=== PATIENT | female | born 1995 | race Caucasian/White ===

== ENCOUNTER 2016-12-31 19:06 | Inpatient (IN) | payer OTHER ==
[2016-12-31] MEDS ORDERED: Dinoprostone* 10 MG VAG.SUPP VAGINAL ONE (20:00)
[2016-12-31] MEDS ORDERED: Zolpidem TAB* 5 MG PO ONE (20:36)
[2016-12-31] MEDS ORDERED: fentaNYL* 50 MCG/ML 2 ML VIAL (100 MCG VIAL) IV PRN (23:55)
[2017-01-01] MEDS ORDERED: fentaNYL* 50 MCG/ML 2 ML VIAL (100 MCG VIAL) ONE ×2 (01:10→10:28)
[2017-01-01 01:16] LABS: Hematocrit 32 % (35-47); Hemoglobin 10.7 g/dl (12.0-16.0); Mean Corpuscular HGB Conc 33 g/dl (31-36); Mean Corpuscular Hemoglobin 28 pg (27-31); Mean Corpuscular Volume 84 fL (80-97); Mean Platelet Volume 8 um3 (7.4-10.4); Red Blood Count 3.85 10^6/ul (4.0-5.4); Red Cell Distribution Width 14 % (10.5-15); White Blood Count 11.7 10^3/ul (3.5-10.8)
[2017-01-01] MEDS ORDERED: Oxytocin in LR* 20 UNITS/1,000 ML BAG IVPB SCH ×2 (09:00→19:46)
[2017-01-01] MEDS ORDERED: OBEPIDURAL* 250 ML ONE (10:10)
[2017-01-01] MEDS ORDERED: fentaNYL* 50 MCG/ML 2 ML VIAL (100 MCG VIAL) IV SLOW PU ONE (10:30)
[2017-01-01] MEDS ORDERED: Phenylephrine IV* 40 MCG/ML 10 ML SYRINGE IV PUSH PRN (12:45)
[2017-01-01] MEDS ORDERED: Famotidine TAB* 20 MG PO PRN (12:45)
[2017-01-01] MEDS ORDERED: Sodium Citrate/Citric Acid* 15 ML UDC PO PRN (12:45)
[2017-01-01] MEDS ORDERED: EPHEDrine (Pressors)* 50 MG/ML VIAL IV PUSH PRN ×2 (12:45)
[2017-01-01] MEDS ORDERED: OBEPIDURAL* 250 ML EPIDURAL SCH (13:00)
[2017-01-01] MEDS: Sertraline* 50 MG TAB PO SCH (17:40)
[2017-01-01] MEDS ORDERED: Witch Hazel PAD* JAR TOPICAL PRN (19:43)
[2017-01-01] MEDS ORDERED: Ibuprofen TAB* 600 MG PO PRN (19:43)
[2017-01-01] MEDS ORDERED: oxyCODONE/Acetamin 5/325 MG* TAB PO PRN (19:43)
[2017-01-01] MEDS ORDERED: Dibucaine 1% 28.35 GM TUBE PR PRN (19:43)
[2017-01-01] MEDS ORDERED: Acetaminophen TAB* 325 MG PO PRN (19:43)
[2017-01-01] MEDS ORDERED: Glycerin ADULT SUPP PR PRN (19:43)
[2017-01-01] MEDS: Docusate CAP* 100 MG PO SCH (21:00)
[2017-01-02 07:57] LABS: Hematocrit 29 % (35-47); Hemoglobin 9.7 g/dl (12.0-16.0); Mean Corpuscular HGB Conc 34 g/dl (31-36); Mean Corpuscular Hemoglobin 28 pg (27-31); Mean Corpuscular Volume 84 fL (80-97); Mean Platelet Volume 8 um3 (7.4-10.4); Red Blood Count 3.41 10^6/ul (4.0-5.4); Red Cell Distribution Width 13 % (10.5-15); White Blood Count 10.7 10^3/ul (3.5-10.8)
[2017-01-02] MEDS: Sertraline* 50 MG TAB PO SCH (08:55)
[2017-01-02] MEDS: Docusate CAP* 100 MG PO SCH ×3 (08:55→19:57)
[2017-01-02] MEDS: Ferrous Gluconate TAB* 324 MG TAB PO SCH ×2 (08:55→19:58)
[2017-01-03 08:13] VITALS: BP 127/77
[2017-01-03] MEDS: Docusate CAP* 100 MG PO SCH (08:41)
[2017-01-03] MEDS: Ferrous Gluconate TAB* 324 MG TAB PO SCH (08:42)
[2017-01-03] MEDS: Sertraline* 50 MG TAB PO SCH (08:42)
== END 2017-01-03 12:11 | disposition home or self-care (01) | DRG 560 ==
LOC: MCHOBOUT 19:06 → MCHOB 19:13
PROVIDERS: ADMIT Nurse Practitioner; ATTEND Midwife
PROC: 10E0XZZ Delivery of Products of Conception, External Approach (ICD-10-PCS; principal; 2017-01-01)
PROC: 3E033VJ Introduction of Other Hormone into Peripheral Vein, Percutaneous Approach (ICD-10-PCS; 2017-01-01)
DX: O48.0 Post-term pregnancy (principal); D64.9 Anemia, unspecified; O90.81 Anemia of the puerperium; Z37.0 Single live birth; Z3A.41 41 weeks gestation of pregnancy; O99.334 Smoking (tobacco) complicating childbirth; F17.210 Nicotine dependence, cigarettes, uncomplicated
CPT/HCPCS: 36415; 59200; 85025; 85027; 86850; 86900; 86901; A9270-GY; J3010

== ENCOUNTER 2017-04-01 10:42 | Inpatient (IN) | payer OTHER ==
[2017-04-01 11:26] LABS: Urine Bilirubin Negative (Negative); Urine Glucose Negative (Negative); Urine Nitrite Negative (Negative)
[2017-04-01 11:36] LABS: Benzodiazepine Urine Screen None Detected (None Detect)
[2017-04-01 11:37] LABS: Hematocrit 44 % (35-47); Hemoglobin 14.4 g/dl (12.0-16.0); Mean Corpuscular HGB Conc 33 g/dl (31-36); Mean Corpuscular Hemoglobin 27 pg (27-31); Mean Corpuscular Volume 83 fL (80-97); Mean Platelet Volume 7 um3 (7.4-10.4); Red Blood Count 5.29 10^6/ul (4.0-5.4); Red Cell Distribution Width 14 % (10.5-15); White Blood Count 9.8 10^3/ul (3.5-10.8)
[2017-04-01 11:51] LABS: ALT 67 U/L (7-52); AST 29 U/L (13-39); Albumin 4.6 g/dL (3.2-5.2); Alkaline Phosphatase 87 U/L (34-104); Anion Gap 9 mmol/L (2-11); BUN/Creatinine Ratio 16.5 (8-20); Blood Urea Nitrogen 18 mg/dL (6-24); CO2 Carbon Dioxide 23 mmol/L (22-32); Calcium 9.7 mg/dL (8.6-10.3); Chloride 103 mmol/L (101-111); EGFR African American 80.7 (>60); EGFR Non-African American 62.8 (>60); Globulin 3.3 g/dL (2-4); Glucose 89 mg/dL (70-100); Sodium 135 mmol/L (133-145); Total Protein 7.9 g/dL (6.4-8.9)
[2017-04-01 12:39] LABS: Acetaminophen < 15 mcg/mL; Alcohol < 10 mg/dL (<10); Salicylate < 2.50 mg/dL (<30)
[2017-04-01 12:44] LABS: TSH (Thyroid Stimulating Horm) 3.61 mcIU/mL (0.34-5.60)
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
[2017-04-01] MEDS ORDERED: Nicotine Inhaler* 10 MG AMP INH PRN (13:24)
[2017-04-01] MEDS ORDERED: Acetaminophen TAB* 325 MG PO PRN (13:24)
[2017-04-01] MEDS ORDERED: Al Hydrox/Mg Hydrox/Simet LIQ* 30 ML UDC PO PRN (13:24)
[2017-04-01] MEDS ORDERED: Ibuprofen TAB* 600 MG PO PRN (13:25)
[2017-04-01] MEDS ORDERED: Mouth Piece, Nicotine* 1 EACH CARTRIDGE INH ONE (14:00)
[2017-04-01] MEDS: Famotidine TAB* 20 MG PO SCH (20:46)
[2017-04-02] MEDS ORDERED: Sertraline* 50 MG TAB PO SCH (09:00)
[2017-04-02] MEDS: Famotidine TAB* 20 MG PO SCH ×2 (09:08→21:35)
[2017-04-02] MEDS: Vitamin THERAPEUTIC TAB PO SCH (09:09)
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
[2017-04-02] MEDS: Citalopram TAB* 20 MG PO SCH (14:14)
[2017-04-02 14:57] LABS: Free T4 0.72 ng/dL (0.61-1.12); Prolactin 6.1 ng/mL (1.0-25.0)
[2017-04-02 15:21] LABS: Luteinizing Hormone 2.7 mcIU/mL
[2017-04-03] MEDS: Vitamin THERAPEUTIC TAB PO SCH (08:30)
[2017-04-03] MEDS: Citalopram TAB* 20 MG PO SCH (08:31)
[2017-04-03] MEDS: Famotidine TAB* 20 MG PO SCH ×2 (08:31→20:49)
--- NOTE | 2017-04-03 15:42 | PN ---
Subjective - Subjective Service Type: 86039 Hosp care 15 min low complexity Subjective: I had the opportunity to meet with Liberty today who reported good sleep and appetite. She states that her mood is "OK" but did acknowledge that she missed her children. She is hoping to be discharged on Wednesday. Case discussed with Dr. Caal. Objective - Appearance Dysmorphic Features: No Hygiene: Normal Grooming: Well Kept - Behavior Psychomotor Activities: Normal Exhibits Abnormal Movement: No - Attitude and Relatedness Attitude and Relatedness: Cooperative Eye Contact: Good - Speech Quality: Unpressured Latencies: Normal Quantity: Appropriate - Mood Patient's Decription of Mood: "Good" - Affect Observed Affect: Non-labile - Thought Process Patient's Thought Process: Coherent Thought Content: No Passive Wish - Denies, No Suicidal Planning - Denies, No Homicidal Ideation - Denies, No Paranoid Ideation - Sensorium Experiencing Hallucinations: No, Sensorium is Clear - Level of Consciousness Level of Consciousness: Alert Orientation: Yes Intact - Impulse Control Impulse Control: Intact - Insight and Judgement Insight and Judgement: Good - Group Participation Particating in Group Activities: Yes Plan - Plan Treatment Plan: Name: LIBERTY VIA Birthdate: 1995 [id number] Medications: Current Medications Acetaminophen (Tylenol Tab*) 650 mg PO Q4H PRN PRN Reason: for pain; or Temp >101 F Al Hydrox/Mg Hydrox/Simethicone (Maalox Plus*) 30 ml PO Q4H PRN PRN Reason: INDIGESTION Citalopram Hydrobromide (Celexa Tab*) 20 mg PO DAILY [facility] Last Admin: 04/03/17 08:31 Dose: 20 mg Famotidine (Pepcid Tab*) 20 mg PO BID [facility] PRN Reason: Protocol Last Admin: 04/03/17 08:31 Dose: Not Given Ibuprofen (Motrin Tab*) 600 mg PO Q6H PRN PRN Reason: PAIN - MILD Multivitamins (Theragran Tab*) 1 tab PO DAILY [facility] Last Admin: 04/03/17 08:30 Dose: 1 tab Nicotine (Nicotine Inhaler*) 10 mg INH Q2H PRN PRN Reason: CRAVING
[2017-04-04] MEDS: Citalopram TAB* 20 MG PO SCH (08:52)
[2017-04-04] MEDS: Famotidine TAB* 20 MG PO SCH ×2 (08:53→20:14)
[2017-04-04] MEDS: Vitamin THERAPEUTIC TAB PO SCH (08:53)
[2017-04-05] MEDS: Citalopram TAB* 20 MG PO SCH (08:34)
[2017-04-05] MEDS: Famotidine TAB* 20 MG PO SCH ×2 (08:35→21:32)
[2017-04-05] MEDS: Vitamin THERAPEUTIC TAB PO SCH (08:35)
--- NOTE | 2017-04-05 10:30 | PN ---
Subjective - Subjective Service Type: 19995 Hosp care 15 min low complexity Subjective: Liberty is pleasant and smiling for our interview today. She denies any active psychiatric or physical symptoms. She is pleasantly accepting of the need to await arrival of social work staff on Wednesday to plan toward discharge. Objective - Appearance Appearance: Well Developed/Nourished Dysmorphic Features: No Hygiene: Normal Grooming: Well Kept - Behavior Psychomotor Activities: Normal Exhibits Abnormal Movement: No - Attitude and Relatedness Attitude and Relatedness: Well Related Eye Contact: Good - Speech Quality: Unpressured Latencies: Normal Quantity: Appropriate - Mood Patient's Decription of Mood: "Good" - Affect Observed Affect: Good Affect Consistent with: Euthymia - Thought Process Patient's Thought Process: Coherent, Goal Directed Thought Content: No Passive Wish, No Suicidal Planning, No Homicidal Ideation, No Paranoid Ideation - Sensorium Experiencing Hallucinations: No, Sensorium is Clear Type of Hallucinations: Visual: No, Auditory: No, Command: No - Level of Consciousness Level of Consciousness: Alert Orientation: Yes Intact, Yes Orientated to Time, Yes Orientated to Place, Yes Orientated to Person - Impulse Control Impulse Control: Intact - Insight and Judgement Insight and Judgement: Fair - Group Participation Particating in Group Activities: Yes - Medication Management Medication Management Adherence: Yes Assessment - Assessment Merits Inpatient Hospitalization: Consolidate Improvements, For Discharge Planning Inpatient DSM-IV Dx: 1. PTSD. 2. Unspecified depressive disorder. 3. Extensive history of polysubstance abuse, reportedly in sustained remission of over 2-1/2 years. 4. Some OCD symptomatology but not sufficient for the diagnosis. 5. Also rule out social phobia versus avoidance symptomatology of PTSD. Clinical Impression: Day of admission, 5.26.17 Liberty Molina is a 21-year-old mother of a 3-year-old daughter and a 3-month-old son by two separate fathers. She reports a fairly extensive history of traumatic experience in tumultuous relationships as a teenager following upon a rebellious phase with abuse of multiple substances. She has come to our attention for the acute safety concerns of a text message to the boyfriend stating that she was suicidal, and notation in the medical record from the ED evaluation of concern on the part of her mother and her boyfriend for the safety of the children. This latter will require some investigation through gathering collateral from the mother and the boyfriend, which Liberty has agreed to. She also states that she feels that she would benefit from arrangement for ongoing psychotherapy. She does not feel that she needs continued hospitalization here, and would prefer to have arrangements for outpatient followup. Early discharge to this option will depend upon gathering collateral from her mother and her boyfriend to clarify acute safety concerns. If risks are sufficiently low, we would contemplate a discharge in short order. If not she will likely be staying for 3 to 5 days for stabilization in a safe environment. She has agreed to start Celexa toward taking Lexapro after discharge against her depressive and anxious symptoms, and antidepressant may also help with management of her PTSD. She has been advised that it would be important to work on establishing a firm sense of safety before delving into potentially destabilizing details of her history of PTSD. Day 4, 04.05.17 Liberty reports sustained remission of SI, and denies any other concerning psychiatric symptoms. She is eager for discharge home, which will depend upon collateral reports from family members who initially raised safety concerns, her mother and her boyfriend. She is med and group compliant. Plan - Plan Treatment Plan: Name: LIEBRTY VIA Birthdate: 1995 [id number] Continue current treatment plan. Discharge contingent upon collateral confirming no acute safety concerns. Medications: Current Medications Acetaminophen (Tylenol Tab*) 650 mg PO Q4H PRN PRN Reason: for pain; or Temp >101 F Al Hydrox/Mg Hydrox/Simethicone (Maalox Plus*) 30 ml PO Q4H PRN PRN Reason: INDIGESTION Citalopram Hydrobromide (Celexa Tab*) 20 mg PO DAILY [facility] Last Admin: 04/05/17 08:34 Dose: 20 mg Famotidine (Pepcid Tab*) 20 mg PO BID JANE PRN Reason: Protocol Last Admin: 04/05/17 08:35 Dose: Not Given Ibuprofen (Motrin Tab*) 600 mg PO Q6H PRN PRN Reason: PAIN - MILD Multivitamins (Theragran Tab*) 1 tab PO DAILY [facility] Last Admin: 04/05/17 08:35 Dose: Not Given Nicotine (Nicotine Inhaler*) 10 mg INH Q2H PRN PRN Reason: CRAVING - Discharge Plan Discharge Plan: Outpatient Follow Up
[2017-04-06 08:01] VITALS: BP 112/66
[2017-04-06] MEDS: Vitamin THERAPEUTIC TAB PO SCH (09:01)
[2017-04-06] MEDS: Famotidine TAB* 20 MG PO SCH (09:01)
[2017-04-06] MEDS: Citalopram TAB* 20 MG PO SCH (09:01)
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
== END 2017-04-06 16:25 | disposition home or self-care (01) | DRG 755 ==
LOC: ED 10:42 → BSU 16:55
PROVIDERS: ADMIT Psychiatry & Neurology Psychiatry; ATTEND Psychiatry & Neurology Psychiatry
DX: F43.10 Post-traumatic stress disorder, unspecified (principal); F32.9 Major depressive disorder, single episode, unspecified; K21.9 Gastro-esophageal reflux disease without esophagitis; Z81.8 Family history of other mental and behavioral disorders
CPT/HCPCS: 36415; 80053; 80307; 80320; 80329; 81003; 83001; 83002; 84146; 84403; 84439; 84443; 84702; 85025; 99222; 99231; A9270-GY; G0480

== ENCOUNTER 2018-01-09 20:09 | Inpatient (IN) | payer MEDICAID ==
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
[2018-01-10] MEDS ORDERED: Calcium Carbonate CHEW TAB* 500 MG (TUMS) ONE (05:40)
[2018-01-10] MEDS: Calcium Carbonate CHEW TAB* 500 MG (TUMS) PO PRN ×2 (05:41→10:25)
[2018-01-10] MEDS ORDERED: Oxytocin in LR* 20 UNITS/1,000 ML BAG IVPB SCH ×2 (10:00→16:00)
[2018-01-10] MEDS: Sertraline* 50 MG TAB PO SCH (10:25)
[2018-01-10 11:06] LABS: Hematocrit 35 % (35-47); Hemoglobin 11.6 g/dl (12.0-16.0); Mean Corpuscular HGB Conc 33 g/dl (31-36); Mean Corpuscular Hemoglobin 26 pg (27-31); Mean Corpuscular Volume 78 fL (80-97); Mean Platelet Volume 8 um3 (7.4-10.4); Platelet Count 227 10^3/ul (150-450); Red Blood Count 4.47 10^6/ul (4.0-5.4); Red Cell Distribution Width 16 % (10.5-15); White Blood Count 9.4 10^3/ul (3.5-10.8)
[2018-01-10] MEDS ORDERED: fentaNYL* 50 MCG/ML 2 ML VIAL (100 MCG VIAL) IV SLOW PU ONE (12:42)
[2018-01-10] MEDS ORDERED: OBEPIDURAL* 250 ML EPIDURAL ONE (12:43)
[2018-01-10] MEDS ORDERED: fentaNYL* 50 MCG/ML 2 ML VIAL (100 MCG VIAL) ONE (12:43)
[2018-01-10] MEDS ORDERED: Phenylephrine IV* 40 MCG/ML 10 ML SYRINGE IV PUSH PRN ×2 (13:23)
[2018-01-10] MEDS ORDERED: EPHEDrine (Pressors)* 50 MG/ML VIAL IV PUSH PRN ×2 (13:23)
[2018-01-10] MEDS ORDERED: Sodium Citrate/Citric Acid* 15 ML UDC PO PRN (13:23)
[2018-01-10] MEDS ORDERED: Famotidine TAB* 20 MG PO PRN (13:23)
[2018-01-10] MEDS ORDERED: OBEPIDURAL* 250 ML EPIDURAL SCH (14:00)
[2018-01-10] MEDS ORDERED: Glycerin ADULT SUPP PR PRN (15:07)
[2018-01-10] MEDS ORDERED: Acetaminophen TAB* 325 MG PO PRN (15:07)
[2018-01-10] MEDS ORDERED: Ibuprofen TAB* 600 MG PO PRN (15:07)
[2018-01-10] MEDS ORDERED: Witch Hazel PAD* JAR TOPICAL PRN (15:07)
[2018-01-10] MEDS ORDERED: Dibucaine 1% 28.35 GM TUBE PR PRN (15:07)
[2018-01-10] MEDS ORDERED: Lidocaine 1% MPF* 2 ML VIAL ONE (15:09)
[2018-01-10] MEDS: Simethicone TAB* 80 MG TAB.CHEW PO SCH (20:15)
[2018-01-10] MEDS: Docusate CAP* 100 MG PO SCH (20:15)
[2018-01-11 06:22] LABS: ABS Basophils 0 10^3/ul (0-0.2); ABS Eosinophils 0 10^3/ul (0-0.6); ABS Lymphocytes 3.4 10^3/ul (1.0-4.8); ABS Monocytes 0.7 10^3/ul (0-0.8); ABS Neutrophils 6.3 10^3/ul (1.5-7.7); ABS Nucleated RBC 0 10^3/ul; Eosinophil % 0.3 % (0-6); Hematocrit 32 % (35-47); Hemoglobin 10.5 g/dl (12.0-16.0); Lymphocyte % 32.8 % (25-47); Mean Corpuscular HGB Conc 34 g/dl (31-36); Mean Corpuscular Hemoglobin 26 pg (27-31); Mean Corpuscular Volume 79 fL (80-97); Mean Platelet Volume 8 um3 (7.4-10.4); Nucleated Red Blood Cells % 0; Platelet Count 153 10^3/ul (150-450); Red Blood Count 3.99 10^6/ul (4.0-5.4); Red Cell Distribution Width 15 % (10.5-15); White Blood Count 10.4 10^3/ul (3.5-10.8)
[2018-01-11] MEDS: Docusate CAP* 100 MG PO SCH ×3 (08:58→20:41)
[2018-01-11] MEDS: Sertraline* 50 MG TAB PO SCH (09:00)
[2018-01-11] MEDS ORDERED: Ferrous Gluconate TAB* 324 MG TAB PO SCH (09:00)
[2018-01-11] MEDS: Simethicone TAB* 80 MG TAB.CHEW PO SCH (09:00)
[2018-01-12] MEDS: Sertraline* 50 MG TAB PO SCH (09:12)
[2018-01-12] MEDS: Docusate CAP* 100 MG PO SCH (09:13)
[2018-01-12 09:48] VITALS: BP 141/72
== END 2018-01-12 11:56 | disposition home or self-care (01) | DRG 560 ==
LOC: MCHOBOUT 20:09 → MCHOB 20:28
PROVIDERS: ADMIT Midwife; ATTEND Midwife
PROC: 10E0XZZ Delivery of Products of Conception, External Approach (ICD-10-PCS; principal; 2018-01-10)
PROC: 10907ZC Drainage of Amniotic Fluid, Therapeutic from Products of Conception, Via Natural or Artificial Opening (ICD-10-PCS; 2018-01-10)
DX: O99.344 Other mental disorders complicating childbirth (principal); F32.9 Major depressive disorder, single episode, unspecified; O77.0 Labor and delivery complicated by meconium in amniotic fluid; O69.1XX0 Labor and delivery complicated by cord around neck, with compression, not applicable or unspecified; F41.9 Anxiety disorder, unspecified; F43.10 Post-traumatic stress disorder, unspecified; Z3A.39 39 weeks gestation of pregnancy; Z37.0 Single live birth
CPT/HCPCS: 36415; 85025; 85027; 86850; 86900; 86901; A9270-GY; J3010

== ENCOUNTER 2018-05-11 08:44 | Emergency (ER) | payer MEDICAID, OTHER ==
[2018-05-11 09:09] VITALS: BP 124/79
--- NOTE | 2018-05-11 10:28 | UC ---
Mlies Moreno Julia, scribed for Crystal Orellana MD on 05/11/18 at 0959 . Dental HPI - HPI Summary HPI Summary: A 22 year old F presents to [facility] accompanied by her daughter with a chief complaint of dental pain for the past six month, significantly worsening recently. Pain is currently 9/10. Denies foul taste in mouth and ear pain. States shes been told her wisdom teeth need to be extracted, but does not have a dentist. Patient has not taken any analgesia in several weeks. Pain worse with chewing. No drooling. No fevers or chills. No ear pain. No sinus pressure. She has not used anything for discomfort. She is unaware who her current PCP is. Denies chance of . Patient's medications reviewed this visit - History of Current Complaint Chief Complaint: UCDentalProblem Stated Complaint: DENTAL Time Seen by Provider: 05/11/18 09:34 Hx Obtained From: Patient Hx Last Menstrual Period: just gave 4 months ago - no period since then Onset/Duration: Lasting Weeks, Worse Since Severity: Severe Pain Intensity: 9 Pain Scale Used: 0-10 Numeric - Allergies/Home Medications Allergies/Adverse Reactions: Allergies Allergy/AdvReac Type Severity Reaction Status Date / Time No Known Allergies Allergy Verified 05/11/18 09:09 Home Medications: Home Medications Ondansetron [Zofran Odt] 4 mg PO ONCE PRN 05/11/18 [History Confirmed 05/11/18] PMH/Surg Hx/FS Hx/Imm Hx Previously Healthy: Yes - Surgical History Surgical History: Yes Surgery Procedure, Year, and Place: tonsills - Family History Known Family History: Positive: Unknown - Patient is adopted. - Social History Occupation: Employed Full-time Lives: With Family Alcohol Use: None Substance Use Type: None Smoking Status (MU): Former Smoker Type: Cigarettes Amount Used/How Often: denies with this Length of Time of Smoking/Using Tobacco: 6+ years - Immunization History Most Recent Influenza Vaccination: unknown Most Recent Tetanus Shot: unknown Most Recent Pneumonia Vaccination: n/a Review of Systems Constitutional: Negative ENT: Negative - ear pain, Dental Pain All Other Systems Reviewed And Are Negative: Yes Physical Exam - Summary Physical Exam Summary: Vital Signs Reviewed: Yes A+Ox3, no distress Eyes: Conjunctiva Clear CADEN, EOM intact and full ENT: Hearing grossly normal TM x2 clear mmoist no exudate, no erythema. Pt with pain #2 tooth. pt with noted cavity. no edema, no fluctuance neck: supple Respiratory: Positive: No respiratory distress, No accessory muscle use Cardiovascular: skin color reflect adequate perfusion Musculoskeletal Exam: WEST x 4 without difficulty Neurological: Positive: Alert, ambulatory without difficulty Psychological: Positive: Normal Response To Family Skin: Positive: no rash, no ecchymosis Triage Information Reviewed: Yes Vital Signs: Initial Vital Signs Temp 97.3 F 05/11/18 09:03 Pulse 71 05/11/18 09:03 Resp 16 05/11/18 09:03 BP 124/79 05/11/18 09:03 Pulse Ox 99 05/11/18 09:03 Dental Complaint Course/Dx - Course Course Of Treatment: Patient with ongoing dental pain 6 months. Patient here with increasing pain 1 month. Patient has not taken anything for analgesia. Patient with #2 tooth noted Anusha. Tender to palpation. But we'll start patient on antibiotics. Recommend Motrin Tylenol. Recommended warm salt water rinses. Dental list provided. Patient comfortable agreement with plan. - Differential Dx/Diagnosis Provider Diagnoses: dental pain Discharge - Sign-Out/Discharge Documenting (check all that apply): Discharge/Admit/Transfer - Discharge Plan Condition: Stable Disposition: HOME Prescriptions: Amoxicillin PO (*) [Amoxicillin 500 MG CAP*] 500 mg PO Q12H #20 cap Patient Education Materials: Toothache (ED) Referrals: No Primary Care Phys,NOPCP [Primary Care Provider] - [facility] [place] [place] [facility] REFERRAL [Outside] Additional Instructions: -Okay to alternate ibuprofen (Advil, Motrin)600mg and Tylenol 1000mg every 3 hours for pain. Take with food. Do NOT take for more than 4-5 days -Swish and spit with warm salt water 3-4 times a day -Take anitbiotics as prescribed until gone - okay to use over the counter numbing medication -Stay well hydrated - frequent sips of cold fluids will be soothing to your throat (popsicles, jello, ice cream, ice water) -Contact a clinic or go to the walk in clinic from the list provided to you today. If you develop swelling inside your mouth, difficulty with chewing or any other concerns it is recommended you go to the emergency department for further management - Billing Disposition and Condition Condition: STABLE Disposition: Home The documentation as recorded by the Miles roy Julia accurately reflects the service I personally performed and the decisions made by , Crystal Orellana MD.
== END 2018-05-11 10:12 | disposition home or self-care (01) ==
LOC: UCEAST 08:44
DX: K08.89 Other specified disorders of teeth and supporting structures (principal); K02.9 Dental caries, unspecified; Z87.891 Personal history of nicotine dependence
CPT/HCPCS: 99211; G0463

== ENCOUNTER 2018-09-17 11:50 | Emergency (ER) | payer OTHER ==
[2018-09-17 12:06] VITALS: BP 151/88
--- NOTE | 2018-09-17 13:23 | UC ---
Respiratory Complaint HPI - HPI Summary HPI Summary: 22 y/o /female present with 2-3 days of throat pain, fatigue, ear pain b/l, worse R. NO shortness of breath, no wheezing/ coughing. NO PMH, no medications , no recent abx. - History of Current Complaint Chief Complaint: UCEar Stated Complaint: EAR PAIN, THROAT PAIN Time Seen by Provider: 09/17/18 12:25 Hx Obtained From: Patient Hx Last Menstrual Period: 9 years ago ?: No Onset/Duration: Sudden Onset, Lasting Days Severity Initially: Moderate Severity Currently: Moderate Pain Intensity: 8 Pain Scale Used: 0-10 Numeric - Allergies/Home Medications Allergies/Adverse Reactions: Allergies Allergy/AdvReac Type Severity Reaction Status Date / Time No Known Allergies Allergy Verified 09/17/18 12:06 Home Medications: Home Medications NK [No Home Medications Reported] 09/17/18 [History Confirmed 09/17/18] PMH/Surg Hx/FS Hx/Imm Hx Previously Healthy: Yes - Surgical History Surgical History: Yes Surgery Procedure, Year, and Place: tonsills - Family History Known Family History: Positive: None, Unknown - Patient is adopted. - Social History Alcohol Use: None Substance Use Type: None Smoking Status (MU): Former Smoker Type: Cigarettes Amount Used/How Often: denies with this Length of Time of Smoking/Using Tobacco: 6+ years When Did the Patient Quit Smoking/Using Tobacco: 2014 - Immunization History Most Recent Influenza Vaccination: unknown Most Recent Tetanus Shot: unknown Most Recent Pneumonia Vaccination: n/a Review of Systems All Other Systems Reviewed And Are Negative: Yes Constitutional: Positive: Fatigue ENT: Positive: Sore Throat, Ear Ache Is Patient Immunocompromised?: Yes Physical Exam Triage Information Reviewed: Yes Appearance: Well-Appearing, No Pain Distress, Well-Nourished Vital Signs: Initial Vital Signs Temp 97.7 F 09/17/18 12:02 Pulse 65 09/17/18 12:02 Resp 16 09/17/18 12:02 BP 151/88 09/17/18 12:02 Pulse Ox 98 09/17/18 12:02 Vital Signs Reviewed: Yes Eyes: Positive: Conjunctiva Clear ENT: Positive: Pharyngeal erythema - minimal, no tonsillar enlargement, TMs normal, Sinus tenderness - minimal, Uvula midline Neck: Positive: Supple, Nontender, No Lymphadenopathy. Negative: Nuchal Rigidity Respiratory: Positive: Chest non-tender, Lungs clear, Normal breath sounds, No respiratory distress, No accessory muscle use. Negative: Crackles, Rhonchi, Stridor, Wheezing, Expiration Cardiovascular: Positive: RRR, No Murmur Psychological Exam: Normal Diagnostic Evaluation - Laboratory O2 Sat by Pulse Oximetry: 98 Respiratory Course/Dx - Course Course Of Treatment: likely viral URI, conservative treatments - Differential Dx/Diagnosis Differential Diagnosis/HQI/PQRI: Bronchitis, Laryngitis, Sinusitis Provider Diagnoses: Viral URI Discharge - Sign-Out/Discharge Documenting (check all that apply): Patient Departure All imaging exams completed and their final reports reviewed: No Studies - Discharge Plan Condition: Good Disposition: HOME Patient Education Materials: Viral Syndrome (ED) Referrals: No Primary Care Phys,NOPCP [Primary Care Provider] - Additional Instructions: - Increase fluid - Increase rest - Return with worsening symptoms - Tyelnol/ motrin as needed for pain - Billing Disposition and Condition Condition: GOOD Disposition: Home
== END 2018-09-17 13:10 | disposition home or self-care (01) ==
LOC: UCEAST 11:50
DX: J06.9 Acute upper respiratory infection, unspecified (principal); H92.03 Otalgia, bilateral; Z87.891 Personal history of nicotine dependence
CPT/HCPCS: 99211; G0463

== ENCOUNTER 2019-03-14 07:35 | Emergency (ER) | payer OTHER ==
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
[2019-03-14 09:52] VITALS: BP 123/70
== END 2019-03-14 09:50 | disposition home or self-care (01) ==
LOC: UCEAST 07:35
DX: Z34.82 Encounter for supervision of other normal pregnancy, second trimester (principal); R11.2 Nausea with vomiting, unspecified; Z87.891 Personal history of nicotine dependence
CPT/HCPCS: 76815; 81003; 84702; 99212; G0463

== ENCOUNTER 2019-04-02 03:41 | Emergency (ER) | payer OTHER ==
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
[2019-04-02 06:44] VITALS: BP 121/78
== END 2019-04-02 04:25 | disposition home or self-care (01) ==
LOC: ED 03:41
DX: S09.90XA Unspecified injury of head, initial encounter (principal); Z3A.21 21 weeks gestation of pregnancy; R11.0 Nausea; R51 Headache; Z87.891 Personal history of nicotine dependence; R42 Dizziness and giddiness; W18.00XA Striking against unspecified object with subsequent fall, initial encounter; Y92.9 Unspecified place or not applicable
CPT/HCPCS: 99282

== ENCOUNTER 2019-08-10 11:55 | Inpatient (IN) | payer OTHER ==
[~2019-08-10 11:55] MED LIST: Lidocaine 1% MPF ** 5 ML VIAL ONE
[2019-08-10] MEDS ORDERED: Buffered Lidocaine 1% SYRIN* 1 ML/SYRINGE INTRADERM ONE (14:18)
[2019-08-10] MEDS ORDERED: Lactated Ringers 1000 ML Bag* 1,000 ML IV ONE (14:18)
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
[2019-08-10] MEDS ORDERED: Lactated Ringers 1000 ML Bag* 1,000 ML IV SCH (15:00)
[2019-08-10] MEDS ORDERED: Oxytocin in LR* 20 UNITS/1,000 ML BAG IVPB SCH (15:00)
[2019-08-10 15:21] LABS: ABS Lymphocytes 2.2 10^3/ul (1.0-4.8); ABS Monocytes 0.4 10^3/ul (0-0.8); ABS Neutrophils 7.8 10^3/ul (1.5-7.7); Eosinophil % 0.1 %; Hematocrit 37 % (35-47); Hemoglobin 12.5 g/dL (12.0-16.0); Lymphocyte % 21.5 %; Mean Corpuscular HGB Conc 34 g/dL (31-36); Mean Corpuscular Hemoglobin 28 pg (27-31); Mean Corpuscular Volume 81 fL (80-97); Mean Platelet Volume 7.8 fL (7.4-10.4); Platelet Count 242 10^3/uL (150-450); Red Blood Count 4.52 10^6 /uL (3.70-4.87); Red Cell Distribution Width 14 % (10-15); White Blood Count 10.5 10^3/uL (3.5-10.8)
[2019-08-10 16:11] LABS: Urine Benzodiazepine Screen None Detected (None Detect); Urine Opiates Screen None Detected (None Detect)
[2019-08-10 18:18] LABS: Albumin 3.6 g/dL (3.2-5.2); Albumin/Globulin Ratio 1.3 (1-3); Calcium 9.1 mg/dL (8.6-10.3); EGFR African American 118.5 (>60); EGFR Non-African American 97.9 (>60); Globulin 2.8 g/dL (2-4); Potassium 3.6 mmol/L (3.5-5.0); Total Bilirubin 0.6 mg/dL (0.2-1.0); Total Protein 6.4 g/dL (6.4-8.9); Uric Acid 6.9 mg/dL (2.3-6.6)
--- NOTE | 2019-08-10 18:49 | PN ---
Progress Note - Progress Note Date of Service: 08/10/19 Note: S: Called to the bedside by RN. Pt with elevated BP. Pt denies BURCIAGA, epigastric pain , vision changes, edema. O: BP 130/90 --> 140/85 A/P: Pt comfortable with elevated BP No physical symptoms Will do PEC labs
[2019-08-10 19:30] LABS: Urine Creatinine Concentration 390.5 mg/dL
--- NOTE | 2019-08-10 20:11 | PN ---
Progress Note - Progress Note Date of Service: 08/10/19 Note: Consult with SAG Advised elevated AST/ALT, uric acid; normal protein/creatinine ratio Most recent BP 130/73 Plan: add urine dipstick; continue with IOL
--- NOTE | 2019-08-10 20:51 | PN ---
Progress Note - Progress Note Date of Service: 08/10/19 Note: S: Pt reports SROM. Uncomfortable with contractions. Consents to VE. Denies s/sx of PEC O: VE: /-1, no BOW palpated on exam Bedside sono confirms vtx Pitocin at 14mU A/P: IUP@40+5 in early labor Normotensive, elevated liver enzymes No evidence of metabolic acidemia Regular contractions, palpate strong, good resting tone Anticipate progression to active labor and
[2019-08-10 21:13] LABS: Urine Appearance Cloudy; Urine Bacteria 1+ (Absent); Urine Bilirubin Negative (Negative); Urine Blood 2+ (Negative); Urine Color Amber; Urine Glucose Negative (Negative); Urine Ketones Negative (Negative); Urine Nitrite Negative (Negative); Urine Protein 1+(30 mg/dL) (Negative); Urine Red Blood Cell 3+(>10/hpf) (Absent); Urine Specific Gravity 1.024 (1.010-1.030); Urine Squamous Epithelial Cell Present (Absent); Urine Urobilinogen Negative (Negative); Urine White Blood Cell 1+(6-10/hpf) (Absent)
[2019-08-10] MEDS ORDERED: OBEPIDURAL* 0 ML EPIDURAL ONE (22:36)
--- NOTE | 2019-08-10 22:43 | PN ---
Progress Note - Progress Note Date of Service: 08/10/19 Note: S: Called to bedside by RN. Pt using nitrous oxide with little effect. Requesting VE and epidural. O: VE: 7/100/-1, bloody show Bedside sono confirms vtx Pitocin off A/P: IUP@40+5 in active labor Normotensive, elevated liver enzymes No evidence of metabolic acidemia Regular contractions, palpate strong, good resting tone Pitocin off until epidural placed Anesthesia aware Anticipate progression to
[2019-08-10] MEDS ORDERED: Calcium Carbonate CHEW TAB* 500 MG (TUMS) PO PRN (22:55)
[2019-08-10] MEDS ORDERED: Bupivacaine 0.25% SDV PF* 10 ML VIAL INJ ONE (22:56)
--- NOTE | 2019-08-10 23:22 | PN ---
Progress Note - Progress Note Date of Service: 08/10/19 Note: Called for possible epidural/intrathecal. The patient decided that she couldn't do it after prep and positoning.
[2019-08-11] MEDS ORDERED: Nalbuphine* 10 MG/ML 1 ML VIAL IV PRN (01:30)
--- NOTE | 2019-08-11 01:30 | PN ---
Progress Note - Progress Note Date of Service: 08/11/19 Note: S: Called to bedside by RN. Unable to place epidural per pt intolerance. Pt using nitrous oxide with little effect. O: VE: 7/100/-1 FHR 130, moderate variability, +accels, no decels contractions 3-4 mins Pitocin 8mU A/P: IUP@40+5 in active labor No evidence of metabolic acidemia Regular contractions, palpate strong, good resting tone No cervical change PARQ discussion about IV pain medication. Plan for Nubain/phenergan. Anticipate progression to
[2019-08-11] MEDS ORDERED: Promethazine INJ(RESTRICTED)* 25 MG/ML 1 ML VIAL IV PRN (01:31)
--- NOTE | 2019-08-11 02:06 | PN ---
Progress Note - Progress Note Date of Service: 08/11/19 Note: With last check, felt additional BOW Attempted AROM after nubain/phenergan Pt unable to tolerate.
[2019-08-11] MEDS ORDERED: Ibuprofen TAB* 600 MG PO PRN (03:01)
[2019-08-11] MEDS ORDERED: Glycerin ADULT SUPP PR PRN (03:01)
[2019-08-11] MEDS ORDERED: Witch Hazel PAD* JAR TOPICAL PRN (03:01)
[2019-08-11] MEDS ORDERED: Acetaminophen TAB* 325 MG PO PRN (03:01)
[2019-08-11] MEDS ORDERED: Dibucaine 1% 28.35 GM TUBE PR PRN (03:01)
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
[2019-08-11] MEDS ORDERED: Lactated Ringers 1000 ML Bag* 1,000 ML IV SCH (04:00)
[2019-08-11] MEDS ORDERED: Oxytocin in LR* 20 UNITS/1,000 ML BAG IVPB SCH (04:00)
[2019-08-11] MEDS ORDERED: Simethicone TAB* 80 MG TAB.CHEW PO SCH (08:30)
[2019-08-11] MEDS: Docusate CAP* 100 MG PO SCH ×2 (15:01→20:34)
[2019-08-12 08:01] VITALS: BP 120/67
[2019-08-12 08:56] LABS: ABS Eosinophils 0.1 10^3/ul (0-0.6); ABS Lymphocytes 2.8 10^3/ul (1.0-4.8); ABS Monocytes 0.5 10^3/ul (0-0.8); Eosinophil % 0.9 %; Hematocrit 33 % (35-47); Hemoglobin 10.9 g/dL (12.0-16.0); Lymphocyte % 26.8 %; Mean Corpuscular HGB Conc 33 g/dL (31-36); Mean Corpuscular Hemoglobin 28 pg (27-31); Mean Corpuscular Volume 85 fL (80-97); Mean Platelet Volume 7.9 fL (7.4-10.4); Platelet Count 159 10^3/uL (150-450); Red Blood Count 3.91 10^6 /uL (3.70-4.87); Red Cell Distribution Width 15 % (10-15); White Blood Count 10.3 10^3/uL (3.5-10.8)
[2019-08-12] MEDS ORDERED: Ferrous Gluconate TAB* 324 MG TAB PO SCH (09:00)
[2019-08-12] MEDS: Docusate CAP* 100 MG PO SCH ×2 (10:59→14:00)
== END 2019-08-12 14:40 | disposition home or self-care (01) | DRG 560 ==
LOC: MCHOBOUT 11:55 → MCHOB 12:43
PROVIDERS: ADMIT Advanced Practice Midwife; ATTEND Advanced Practice Midwife
PROC: 10E0XZZ Delivery of Products of Conception, External Approach (ICD-10-PCS; principal; 2019-08-11)
PROC: 3E033VJ Introduction of Other Hormone into Peripheral Vein, Percutaneous Approach (ICD-10-PCS; 2019-08-11)
DX: O48.0 Post-term pregnancy (principal); Z37.0 Single live birth; Z3A.40 40 weeks gestation of pregnancy; O99.214 Obesity complicating childbirth; O99.344 Other mental disorders complicating childbirth; F43.10 Post-traumatic stress disorder, unspecified; F41.8 Other specified anxiety disorders
CPT/HCPCS: 36415; 80053; 80307; 81003; 81015; 82570; 84156; 84550; 85025; 86850; 86900; 86901; 87086; A9270-GY; J2300; J2550; J3490

== ENCOUNTER 2019-10-30 09:45 | Emergency (ER) | payer OTHER ==
[2019-10-30 09:53] VITALS: BP 122/77
--- NOTE | 2019-10-30 09:56 | UC ---
Dental HPI - HPI Summary HPI Summary: 23 yo female presents with dental pain. She tells me that she has wisdom teeth that are "crooked" and they sometimes get infected. She has made an appt with a dentist, but they cannot see her until dec 2019. Over the last 3-4 days she has had pain and swelling in her left upper wisdom tooth. She has not been taking anything OTC for her symptoms because she does not like to take medications. - History of Current Complaint Chief Complaint: UCDentalProblem Stated Complaint: MOUTH PROBLEM Time Seen by Provider: 10/30/19 09:56 Hx Obtained From: Patient Hx Last Menstrual Period: unsure Onset/Duration: Gradual Onset Severity: Moderate Pain Intensity: 9 Pain Scale Used: 0-10 Numeric - Allergies/Home Medications Allergies/Adverse Reactions: Allergies Allergy/AdvReac Type Severity Reaction Status Date / Time No Known Allergies Allergy Verified 10/30/19 09:53 PMH/Surg Hx/FS Hx/Imm Hx - Additional Past Medical History Additional PMH: None - Surgical History Surgical History: Yes Surgery Procedure, Year, and Place: tonsills - Family History Known Family History: Positive: Unknown - Patient is adopted. - Social History Occupation: Employed Full-time Lives: With Family Alcohol Use: None Substance Use Type: None Smoking Status (MU): Former Smoker Type: Cigarettes Amount Used/How Often: denies with this Length of Time of Smoking/Using Tobacco: 6+ years When Did the Patient Quit Smoking/Using Tobacco: 2014 - Immunization History Most Recent Influenza Vaccination: unknown Most Recent Tetanus Shot: unknown Most Recent Pneumonia Vaccination: n/a Review of Systems All Other Systems Reviewed And Are Negative: No Constitutional: Positive: Negative Skin: Positive: Negative Eyes: Positive: Negative ENT: Positive: Dental Pain Respiratory: Positive: Negative Cardiovascular: Positive: Negative Neurological: Positive: Negative Psychological: Positive: Negative Physical Exam - Summary Physical Exam Summary: GENERAL: NAD. WDWN. No pain distress. SKIN: No rashes, sores, lesions, or open wounds. HEENT: Head: AT/NC Nose: Nasal mucosa pink and moist. NTTP maxillary and frontal sinus. Throat: Posterior oropharynx without exudates, erythema, or tonsillar enlargement. Uvula midline. NECK: Supple. Nontender. No lymphadenopathy. CHEST: No accessory muscle use. Breathing comfortably and in no distress. NEURO: Alert. PSYCH: Age appropriate behavior. Triage Information Reviewed: Yes Vital Signs: Initial Vital Signs Temp 98 F 10/30/19 09:51 Pulse 75 10/30/19 09:51 Resp 15 10/30/19 09:51 BP 122/77 10/30/19 09:51 Pulse Ox 100 10/30/19 09:51 Vital Signs Reviewed: Yes Dental: Positive: Percussion Tenderness @ - Tooth #16, Abscess @ - Tooth #16. Negative: Cellulitis @, Cervical Lymphadenopathy, Bleeding Dental Complaint Course/Dx - Course Course Of Treatment: Tooth #16 abscess - Differential Dx/Diagnosis Provider Diagnosis: Dental abscess Discharge ED - Sign-Out/Discharge Documenting (check all that apply): Patient Departure All imaging exams completed and their final reports reviewed: No Studies - Discharge Plan Condition: Stable Disposition: HOME Prescriptions: Clindamycin HCl 300 mg PO TID #21 capsule Patient Education Materials: Dental Abscess (ED) Forms: *Work Release Referrals: No Primary Care Phys,NOPCP [Primary Care Provider] - Additional Instructions: If you develop a fever, shortness of breath, chest pain, new or worsening symptoms - please call your PCP or go to the ED immediately. Keep your appointment in December with your dentist - Billing Disposition and Condition Condition: STABLE Disposition: Home
== END 2019-10-30 10:05 | disposition home or self-care (01) ==
LOC: UCEAST 09:45
DX: K04.7 Periapical abscess without sinus (principal); Z87.891 Personal history of nicotine dependence
CPT/HCPCS: 99212; G0463